=== PATIENT | female | born 1930 | race Caucasian/White ===

== ENCOUNTER 2017-01-04 12:12 | Outpatient (CLI) | payer OTHER, MEDICARE ==
--- NOTE | 2017-01-04 13:37 | DIAGNOSTIC IMAGING REPORT ---
PROCEDURE: CTA THORAX WITH CONTRAST INDICATION: CHEST PAIN TECHNIQUE: 72 ml of Isovue 370 was injected intravenously and axial images were obtained of the chest with 3D sagittal and coronal MIP reconstructions. COMPARISON: CT thorax 02/19/2014 FINDINGS: Normal opacification of the pulmonary arterial tree without filling defect. The central pulmonary arteries are normal caliber. Thoracic aorta is normal caliber with mild atherosclerotic calcification in the descending portion. The great vessels demonstrate a normal branching pattern. LAD and circumflex coronary stent versus calcification. Mild left atrial enlargement. Ventricular size is normal. No pericardial effusion. Mild subcarinal and left peribronchial adenopathy. Nonenlarged, stable prevascular lymph nodes. The esophagus is normal in caliber without hiatal hernia. The thyroid gland is normal. Scattered bilateral peripheral areas of subpleural fibrotic change. In the lateral lingula, there is more confluent fibrosis and a dense consolidation, progressed compared to the prior study. Anteriorly in the lingula there is also more confluent fibrosis with consolidation. Posteromedial right lower lobe fibrosis has also become more confluent and there is posterior pleural thickening bilaterally. No effusions. The airway is patent and branches normally. Mild left lower lobe and lingular bronchiectasis has increased compared to the previous study. No pneumothorax. Osseous structures are intact. The images obtained of the upper abdomen are normal. IMPRESSION: 1. No pulmonary embolus. 2. Progressive chronic fibrotic changes in both lungs with two focal areas of more confluent fibrosis in the lateral and anterior lingula compared to the prior study. An underlying infectious process is not excluded but felt less likely given lack of significant new infiltrate or effusion. 3. Chronic minor subcarinal and left peribronchial adenopathy. 4. Discussed with Dr. Prabhakar.
== END 2017-01-04 23:00 | disposition home or self-care (01) ==
LOC: CT SRH 12:12
DX: R59.1 Generalized enlarged lymph nodes (principal); R91.8 Other nonspecific abnormal finding of lung field; I26.99 Other pulmonary embolism without acute cor pulmonale